=== PATIENT | female | born 1970 | race Native Hawaiian/Other Pacific Islander ===

== ENCOUNTER 2017-11-22 06:00 | Emergency (ER) | payer OTHER ==
[~2017-11-22] VITALS: Ht 160 cm; Wt 105.2 kg
[2017-11-22 06:33] VITALS: BP 130/98
== END 2017-11-22 06:33 | disposition home or self-care (01) ==
LOC: ED 06:00
DX: L30.8 Other specified dermatitis (principal); I10 Essential (primary) hypertension

== ENCOUNTER 2018-07-24 20:24 | Emergency (ER) | payer OTHER ==
[~2018-07-24] VITALS: Ht 165.1 cm; Wt 88.0 kg
[2018-07-24 20:43] VITALS: Ht 165.1 cm; Wt 88.0 kg
[2018-07-24 22:09] LABS: microscopic required? NO
[2018-07-24 22:17] LABS: BASOPHIL % 0.4 % (0-2); PLATELET COUNT 247 x10^3mcL (130-400); RED CELL DISTRIBUTION WIDTH 13.4 % (11.5-14.5)
[2018-07-24 22:21] LABS: urine erythrocyte NEGATIVE (NEGATIVE)
[2018-07-24 22:35] LABS: ALKALINE PHOSPHATASE 115 U/L (46-116); ALT/SGPT 18 U/L (14-59); AST/SGOT 12 U/L (15-37); CALCIUM 9.1 mg/dL (8.5-10.1); CARBON DIOXIDE 27.4 mmol/L (21-32); CHLORIDE SERUM 99 mmol/L (98-107); CREATININE SERUM 0.8 mg/dL (0.6-1.0); GFR1 > 60 mL/min; POTASSIUM SERUM 3.9 mmol/L (3.5-5.1); SODIUM SERUM 135 mmol/L (136-145); TOTAL PROTEIN, SERUM 6.5 g/dL (6.4-8.2)
[2018-07-24 22:41] LABS: GLUCOSE SERUM 560 mg/dL (74-106)
[2018-07-25 01:43] VITALS: BP 121/79
== END 2018-07-25 01:43 | disposition home or self-care (01) ==
LOC: ED 20:24
PROVIDERS: Emergency Medicine
DX: R06.02 Shortness of breath (principal); M54.6 Pain in thoracic spine; J45.909 Unspecified asthma, uncomplicated; E11.9 Type 2 diabetes mellitus without complications; I10 Essential (primary) hypertension
CPT/HCPCS: 82962; 85378; J1815; J3480; J7030; Q0092

== ENCOUNTER 2018-11-21 13:01 | Emergency (ER) | payer OTHER ==
[~2018-11-21] VITALS: Ht 160 cm; Wt 91.2 kg
[2018-11-21 13:06] VITALS: Ht 160 cm; Wt 91.2 kg
[2018-11-21 13:49] LABS: BASOPHIL % 0.7 % (0-2); PLATELET COUNT 298 x10^3mcL (130-400); RED CELL DISTRIBUTION WIDTH 13.2 % (11.5-14.5)
[2018-11-21 13:58] LABS: ALKALINE PHOSPHATASE 91 U/L (46-116); ALT/SGPT 15 U/L (14-59); AST/SGOT 1 U/L (15-37); BILIRUBIN TOTAL 0.23 mg/dL (0.20-1.00); CALCIUM 8.9 mg/dL (8.5-10.1); CARBON DIOXIDE 23.3 mmol/L (21-32); CHLORIDE SERUM 101 mmol/L (98-107); CREATININE SERUM 0.8 mg/dL (0.6-1.0); GFR1 > 60 mL/min; LIPASE 178 IU/L (73-393); POTASSIUM SERUM 4.3 mmol/L (3.5-5.1); SODIUM SERUM 135 mmol/L (136-145); TOTAL PROTEIN, SERUM 6.6 g/dL (6.4-8.2)
[2018-11-21 14:06] LABS: microscopic required? NO
[2018-11-21 14:07] LABS: CHOLESTEROL 209 mg/dL (<200); HDL CHOLESTEROL 61 mg/dL (40-60)
[2018-11-21 14:09] LABS: GLUCOSE SERUM 495 mg/dL (74-106)
[2018-11-21 14:22] LABS: urine erythrocyte NEGATIVE (NEGATIVE)
[2018-11-21 16:53] VITALS: BP 124/80
== END 2018-11-21 16:53 | disposition home or self-care (01) ==
LOC: ED 13:01
PROVIDERS: Emergency Medicine
DX: E11.65 Type 2 diabetes mellitus with hyperglycemia (principal); I10 Essential (primary) hypertension; J45.909 Unspecified asthma, uncomplicated; E66.9 Obesity, unspecified; Z68.35 Body mass index [BMI] 35.0-35.9, adult
CPT/HCPCS: 36600; 82962; J1815; J7030; Q0092

== ENCOUNTER 2019-04-27 12:41 | Emergency (ER) | payer OTHER ==
[~2019-04-27] VITALS: Ht 160 cm; Wt 98.9 kg
[2019-04-27 12:45] VITALS: Ht 160 cm; Wt 98.9 kg
[2019-04-27 15:05] VITALS: BP 126/89
== END 2019-04-27 15:05 | disposition home or self-care (01) ==
LOC: ED 12:41
DX: H10.89 Other conjunctivitis (principal); I10 Essential (primary) hypertension; J45.909 Unspecified asthma, uncomplicated